=== PATIENT | female | born 1950 | race Caucasian/White ===

== ENCOUNTER 2017-04-25 10:44 | Day surgery (SDC) | payer MEDICARE, BC ==
[2017-04-25] MEDS ORDERED: MIDAZOLAM 2 MG/2 ML SOL ONE (11:19)
[2017-04-25] MEDS ORDERED: FENTANYL 100MCG/2ML SOL ONE (11:20)
[2017-04-25] MEDS ORDERED: LIDOCAINE HCL 1% MPF SOL ONE (11:45)
[2017-04-25] MEDS ORDERED: BUPIVACAINE HCL 0.5% MPF 10 ML SOL ONE (11:45)
[2017-04-25] MEDS ORDERED: BUPIVACAINE LIPOSOME 20 ML SUS ONE (11:46)
[2017-04-25 13:39] VITALS: TEMP 97.9
[2017-04-25 14:31] VITALS: BP 120/80; PULSE 64; RESP 16; O2SAT 100
== END 2017-04-25 15:05 | disposition home or self-care (01) | DRG 554 ==
LOC: SURG 10:44
PROVIDERS: ATTEND Podiatrist
DX: M19.071 Primary osteoarthritis, right ankle and foot (principal); M77.51 Other enthesopathy of right foot and ankle
CPT/HCPCS: J2250; J3010; L3260; A6402; J2001